=== PATIENT | female | born 1995 | race Two or more races ===

== ENCOUNTER 2022-03-13 14:22 | Emergency (ER) | payer BC, MEDICAID ==
[~2022-03-13] VITALS: Ht 167.6 cm; Wt 112.0 kg
[2022-03-13] MEDS ORDERED: ACETAMINOPHEN 500 MG TAB PO ONE (14:30)
[2022-03-13 17:08] VITALS: BP 132/69
[2022-03-13] MEDS ORDERED: LET TOPICAL SOLN 5 ML TOP ONE (17:45)
[2022-03-13] MEDS ORDERED: TETANUS-DIPTH-ACEL PERTUSSIS 0.5ML SYR Tdap IM ONE (18:00)
[2022-03-13] MEDS ORDERED: BACITRACIN TOP OINT 1 UD PKG TOP ONE (19:30)
== END 2022-03-13 20:14 | disposition home or self-care (01) ==
LOC: ER 14:22
DX: S51.812A Laceration without foreign body of left forearm, initial encounter (principal); F15.10 Other stimulant abuse, uncomplicated; F12.10 Cannabis abuse, uncomplicated; X58.XXXA Exposure to other specified factors, initial encounter; Y93.89 Activity, other specified; Y92.89 Other specified places as the place of occurrence of the external cause; Y99.8 Other external cause status
CPT/HCPCS: 12002; 82962; 90471; 90715